=== PATIENT | female | born 1965 | race Caucasian/White ===

== ENCOUNTER 2025-02-09 11:53 | Emergency (ER) | payer BC, SELFPAY ==
[2025-02-09 11:58] VITALS: BP 169/102; PULSE 88; TEMP 36.4; O2SAT 97
--- NOTE | 2025-02-09 12:09 | ED_ITS ---
HPI HPI - General Adult General Chief complaint: Extremity Problem, Nontraumatic Stated complaint: NECK PAIN Time Seen by Provider: 02/09/25 12:03 Source: patient Mode of arrival: walk-in Limitations: no limitations History of Present Illness HPI narrative: The patient presented to us with almost 1 week history of neck pain that started after she was playing pickle ball, the patient denies any fall or trauma she mentioned that the pain is positional and happened in certain position and caused some pain in the neck with no radiation down the leg or the arm, patient have no numbness tingling or any weakness She have no history of any chronic neck pain and she denies any other concerns she took some ibuprofen earlier in the morning The patient mentioned that right now the pain when she is laying still is not there but whenever she moves sometimes it will cause her to have pain Related Data Previous Rx's ?Medication ?Instructions ?Recorded diclofenac sodium 75 mg 75 mg PO BID PRN pain #20 ta bs 02/09/25 tablet,delayed release orphenadrine citrate 100 mg 100 mg PO ONCE PRN muscle spasm 02/09/25 tablet,extended release #10 tabs Allergies Allergy/AdvReac Type Severity Reaction Status Date / Time No Known Drug Allergies Allergy Verified 02/09/25 11:58 Review of Systems ROS Status of ROS 10 or more systems reviewed and unremark able except as noted in history and below PFSH PFSH Social History Little interest or pleasure in doing things: not at all Feeling down, depressed, or hopeless: not at all Exam Narrative Exam Narrative: Nurses notes and vital signs reviewed and patient is not hypoxic. General: Well-appearing and in no apparent distress. Skin: Warm, dry, no pallor noted. No rash. Head: Normocephalic, atraumatic. Neck: Supple, paraspinal muscle tenderness in the upper cervical level no intervertebral line tenderness induced with palpation or any movement, the patient has full range of movement Eye: Pupils are equal, round and EOMI. No scleral icterus. Cardiovascular: Regular Rate and Rhythm without murmur, gallop or rub. Respiratory: No accessory muscle use or respiratory distress. Lungs are clear to auscultation, no wheezing, rales or rhonchi Chest Wall: no tenderness Back: No midline thoracic or lumbar vertebral tenderness. No CVA tenderness Musculoskeletal: normal ROM, no calf or popliteal tenderness, no lower extremity edema/swelling GI: Abdomen is soft, non-distended. Normal bowel sounds. No masses appreciated. No tenderness to palpation. No rebound, guarding, or rigidity noted. Neurological: A&O x4. No cranial nerve dysfunction observed. Constitutional Vital Signs, click to edit/add: Last Vital Signs Temp 97.6 F 02/09/25 11:58 Pulse 88 02/09/25 11:58 Resp 18 02/09/25 11:58 BP 169/102 H 02/09/25 11:58 Pulse Ox 97 02/09/25 11:58 O2 Del Method Room Air 02/09/25 11:58 Course Vital Signs Vital signs: Vital Signs Temperature 97.6 F 02/09/25 11:58 Pulse Rate 88 02/09/25 11:58 Respiratory Rate 18 02/09/25 11:58 Blood Pressure 169/102 H 02/09/25 11:58 Pulse Oximetry 97 02/09/25 11:58 Oxygen Delivery Method Room Air 02/09/25 11:58 Temperature 97.6 F 02/09/25 11:58 Pulse Rate 88 02/09/25 11:58 Respiratory Rate 18 02/09/25 11:58 Blood Pressure 169/102 H 02/09/25 11:58 Pulse Oximetry 97 02/09/25 11:58 Oxygen Delivery Method Room Air 02/09/25 11:58 Medical Decision Making [facility] Narrative Medical decision making narrative: The patient presented to us with mild symptoms of pain she was started on Toradol in the ER discharged home with Voltaren and Norflex with instruction to monitor her symptoms The patient to come back to us in case of any symptoms or concerns and she was educated about alarming symptoms that would bring her to the ER The patient is to follow up with primary care physician in next 2-3 days or to return to the emergency department should any of the signs or symptoms worsen or new symptoms develop. The patient agrees with the following Diagnosis and Treatment plan and the patient will be discharged home. Discharge Plan Discharge Chief Complaint: Extremity Problem, Nontraumatic Clinical Impression: Neck sprain Patient Disposition: Home, Self-Care Time of Disposition Decision: 12:10 Condition: Good Mode of Transportation: Private Vehicle Prescriptions / Home Meds: New orphenadrine citrate 100 mg tablet extended release 100 mg PO ONCE PRN (Reason: muscle spasm) Qty: 10 0RF diclofenac sodium 75 mg tablet,delayed release (DR/EC) 75 mg PO BID PRN (Reason: pain) Qty: 20 0RF Print Language: Lithuanian Instructions: Cervical Sprain (ED) Additional Instructions: Follow up with your family Referrals: Jamey Acuna NP [Primary Care Provider] - 1 week Discharge Date/Time: 02/09/25 12:39
[2025-02-09] MEDS: KETOROLAC TROMETHAMINE 30 MG/ML VIAL IM (12:28)
--- NOTE | 2025-02-09 12:35 | PC.NURSE ---
back of neck hurts after playing a sport last Sun. Pt able to move neck and denies back or head pain. OTC meds have not been helping. No redness, swelling or bruising observed. Ambulates with no problems
== END 2025-02-09 12:39 | disposition home or self-care (01) ==
PROVIDERS: Emergency Provider Emergency Medicine; PCP Nurse Practitioner Primary Care
DX: S13.9XXA Sprain of joints and ligaments of unspecified parts of neck, initial encounter (principal); M54.2 Cervicalgia
CPT/HCPCS: 96372; 99284; J1885